=== PATIENT | female | born 1945 | race African-American/Black ===

== ENCOUNTER 2017-12-02 05:19 | Observation (INO) | payer MEDICARE ==
[2017-11-30 14:53] LABS: EOSINOPHILS # (AUTO) 0.1 (0.0-0.4); EOSINOPHILS % 3.4 % (0.0-6.0); HEMATOCRIT 35.8 % (34.2-44.1); HEMOGLOBIN 11.6 g/dL (12.0-16.0); LYMPHOCYTES # (AUTO) 1.4 (1.0-3.2); LYMPHOCYTES % 34.1 % (18.0-39.1); MEAN CORPUSCULAR HEMOGLOBIN 27.2 pg (28-32); MEAN CORPUSCULAR HGB CONC 32.4 g/dL (31-35); MEAN CORPUSCULAR VOLUME 83.8 fL (81-99); MONOCYTES # (AUTO) 0.6 (0.2-0.8); MONOCYTES % 13.7 % (4.4-11.3); NEUTROPHILS % 47.6 % (38.7-80.0); PLATELET COUNT 189 x10e3/uL (140-360); RED BLOOD COUNT 4.27 x10e6/uL (3.6-5.1); RED CELL DISTRIBUTION WIDTH 15.9 % (11.7-14.4)
--- NOTE | 2017-11-30 15:02 | Diagnostic Imaging Report ---
PROCEDURE: Frontal and lateral views of the chest. COMPARISON: Patients [facility], , CHEST 2 VIEWS, 03/12/2008, 8:59. INDICATIONS: PREOPERATIVE CHEST XRAY FOR CERVICAL SPINE SURGERY FINDINGS: Lines/tubes: None. Lungs: The lungs are well inflated and clear. There is no evidence of pneumonia or pulmonary edema. Pleura: There is no pleural effusion or pneumothorax. Heart and mediastinum: Stable enlargement of the cardiac silhouette, predominantly left atrial and ventricle. Pulmonary vasculature is normal. Atherosclerotic calcification of the aortic arch. Bones: No acute bony abnormality. IMPRESSION: 1. stable enlarged silhouette, with no acute cardiopulmonary abnormalities. Jourdan Chen M.D. Dictated by: Jourdan Chen M.D. on 11/30/2017 at 15:07 Electronically approved by: Jourdan Chen M.D. on 11/30/2017 at 15:07
[2017-11-30 15:05] LABS: INR 1.02; PROTHROMBIN TIME 12.6 seconds (11.9-14.5)
[2017-11-30 15:06] LABS: PARTIAL THROMBOPLASTIN TIME 30.7 seconds (23.8-35.5)
[2017-11-30 15:11] LABS: ANION GAP 14.2 mmol/L (8-16); CALCIUM 9.4 mg/dL (8.4-10.2); CREATININE, SERUM 1.09 mg/dL (0.57-1.11); POTASSIUM 4.2 mmol/L (3.5-5.1)
[~2017-12-02] VITALS: Ht 165.1 cm; Wt 114.8 kg
[~2017-12-02 05:19] MED LIST: AMLODIPINE BESYL5 MG PO; ATORVASTATIN CA20 MG PO; CITALOPRAM HBR20 MG PO; IBUPROFEN400 MG PO; OMEPRAZOLE40 MG PO; TERAZOSIN HCL1 MG PO; Z MINOXIDIL PO; Z.0.ATENOLOL50 MG PO; Z.0.LASIX40 MG PO; Z.0.LISINOPRIL20 MG PO; potassium chloride PO
[2017-12-02] MEDS ORDERED: THROMBIN FOR SOLN 5,000 UNIT VIAL ONE (06:29)
[2017-12-02] MEDS ORDERED: GELATIN SPONGE SZ 100 ONE (06:29)
[2017-12-02] MEDS ORDERED: BUPIVACAINE 0.5%/EPI 30 ML SDV INJ ONE (06:29)
[2017-12-02] MEDS ORDERED: BACITRACIN 50,000 UNIT VIAL ONE (06:29)
[2017-12-02] MEDS ORDERED: CEFAZOLIN SOD 1 GM VIAL ONE (06:37)
[2017-12-02] MEDS ORDERED: ACETAMINOPHEN 1000 MG/100 ML 100 ML IV ONE (07:17)
[2017-12-02] MEDS ORDERED: LIDOCAINE HCL (LTA) 4 ML SOLN ONE (07:18)
[2017-12-02] MEDS ORDERED: HYDROMORPHONE 1MG/1ML INJ ONE (08:57)
[2017-12-02] MEDS ORDERED: FENTANYL CITRATE/PF 100MCG/2 ML INJ ONE ×2 (08:58→17:52)
[2017-12-02] MEDS: LACTATED RINGER'S 1,000 ML IV SCH ×2 (09:10→17:58)
[2017-12-02] MEDS ORDERED: IBUPROFEN 400 MG TAB PO SCH (09:15)
[2017-12-02] MEDS ORDERED: MAGNESIUM/ALUMINUM/SIMETHICONE 30 ML UDC PO PRN (09:15)
[2017-12-02] MEDS ORDERED: OXYCODONE/ACETAMINOPHEN 5-325 1 EACH TABLET PO PRN (09:15)
[2017-12-02] MEDS ORDERED: ACETAMINOPHEN 325 MG TAB PO PRN (09:15)
[2017-12-02] MEDS ORDERED: ZOLPIDEM TARTRATE 5 MG TAB PO PRN (09:15)
[2017-12-02] MEDS ORDERED: MORPHINE SULFATE 5 MG/ML VIAL IM PRN (09:15)
[2017-12-02] MEDS ORDERED: CARISOPRODOL 350 MG TAB PO PRN (09:15)
[2017-12-02] MEDS ORDERED: PROMETHAZINE HCL (IM) 25 MG/ML VIAL IM PRN (09:15)
--- NOTE | 2017-12-02 10:14 | Operative Report ---
DATE OF PROCEDURE: December 02, 2017 PREOPERATIVE DIAGNOSIS: C6-7 disk herniation with radiculopathy, M50.123. POSTOPERATIVE DIAGNOSIS: C6-7 disk herniation with radiculopathy, M50.123. PROCEDURES 1. C6-C7 anterior cervical diskectomy and microsurgical osteophyte resection and allograft fusion, 21225. 2. Preparation of MTF cortical cancellous allograft, 51928. 3. C6-C7 anterior cervical plating with Synthes ZP endplate, 96683. ANESTHESIA: General. INDICATIONS: Patient is a 72-year-old woman who presents with a right C7 radiculopathy due to a right-sided C6-7 disk herniation in the setting of multilevel cervical spondylosis. She was taken to the operating room for anterior cervical decompression and fusion limited to the C6-C7 segment. PROCEDURE: After induction of general anesthesia, the patient was placed on the operating table in supine position. The right side of the neck was prepped and draped in sterile fashion. The fluoroscopic C-arm was positioned in cross-table lateral orientation. A transverse incision was created on the right side of the neck just above the clavicle. The platysma was divided in line with the incision. A subplatysmal dissection was carried out. An avascular plane of dissection was developed medial to the sternocleidomastoid muscle and followed medial to the carotid sheath to the anterior border of the cervical spine. The deep cervical fascia was opened. The esophagus was retracted to the left. The attachments of longus coli muscles to the anterior lateral aspects of vertebral bodies of C6 and C7 were divided. The anterior longitudinal ligament was resected. York posts were inserted into C6 and C7. A York distractor was used to distract the disk space. The anterior annulus of the disk was incised with a #11 blade, and the contents of the disks were thoroughly evacuated with angled curets and pituitary rongeurs. The posterior osteophytes were meticulously drilled with a 2-mm cutting bur until they were completely removed. The posterior annulus of the disk, a large amount of herniated disk material from the right C7 neural foramen, and the posterior longitudinal ligament were resected layer by layer to fully expose and decompress the nerve roots and the dura. The medial aspect of the uncinate process was resected on the right side to further ensure the decompression of the right C7 nerve root. After satisfactory decompression had been achieved, the endplates were prepared for fusion. The disk space was sized and fount to be 8 mm in height. A piece of MTF cortical cancellous allograft measuring 8 mm in thickness was selected and prepared in saline and loaded onto a Synthes ZP endplate. The construct was inserted into the C6-7 disk space under distraction and fluoroscopic guidance and tamped in place until the anterior margin of the plate was flush with anterior margins of the vertebral bodies. The plate was then screwed to the endplates of C6 and C7 with 2 pairs of 14-mm screws. All screws were locked. An excellent construct was obtained. The wound was copiously irrigated with bacitracin solution. Meticulous hemostasis was secured. Retractor was removed. The platysma was closed with 3-0 Vicryl sutures. The skin was closed with 4-0 Monocryl sutures in subcuticular fashion. Steri-Strips and dressing were applied. The patient was awakened, extubated, and taken to the postanesthesia care unit in stable condition. No intraoperative complications were encountered. Estimated blood loss was 10 mL. Job#: [id number]
[2017-12-02] MEDS ORDERED: IBUPROFEN 600 MG TAB PO PRN (11:30)
[2017-12-02 11:50] VITALS: BP 173/82
[2017-12-02 12:45] VITALS: BP 173/82
[2017-12-02] MEDS: ONDANSETRON HCL INJ 2 MG/ML VIAL IV PRN ×2 (13:00→20:30)
[2017-12-02] MEDS: HYDROMORPHONE 2MG/ML 2 MG/ML ML IV PRN ×2 (13:00→20:30)
[2017-12-02] MEDS ORDERED: CEFAZOLIN SOD 1 GM/D5W 50ML 50 ML IV SCH (14:00)
[2017-12-02] MEDS: CEFAZOLIN SOD 1 GM VIAL IV SCH ×2 (14:27→22:23)
[2017-12-02 15:08] VITALS: BP 173/82
[2017-12-02 15:16] VITALS: BP 147/64
[2017-12-02] MEDS ORDERED: GLYCOPYRROLATE INJ 1MG/ 5 ML SYR ONE (17:44)
[2017-12-02] MEDS ORDERED: PROPOFOL IV EMULSION 10 MG/ML 20 ML VIAL ONE (17:44)
[2017-12-02] MEDS ORDERED: ONDANSETRON HCL INJ 2 MG/ML VIAL ONE (17:44)
[2017-12-02] MEDS ORDERED: ROCURONIUM BROMIDE 10 MG/ML 5ML VIAL ONE (17:44)
[2017-12-02] MEDS ORDERED: SEVOFLURANE INHAL SOLN 250 ML PEN BTL ONE (17:44)
[2017-12-02] MEDS ORDERED: EPHEDRINE SULFATE INJ 50 MG/10 ML SYR ONE (17:44)
[2017-12-02] MEDS ORDERED: NEOSTIGMINE 5 MG/5ML SYR ONE (17:44)
[2017-12-02] MEDS ORDERED: LIDOCAINE HCL 2% LOCAL INJ 5 ML SDV VIAL INJ ONE (17:44)
[2017-12-02] MEDS ORDERED: DEXAMETHASONE SOD PHOS INJ 4 MG/ML VIAL ONE (17:44)
[2017-12-02] MEDS ORDERED: MIDAZOLAM HCL 2 MG/2 ML VIAL ONE (17:52)
[2017-12-02] MEDS: AMLODIPINE BESYLATE 5 MG TAB PO SCH (17:56)
[2017-12-02] MEDS: LISINOPRIL 20 MG TAB PO SCH (17:57)
[2017-12-02 19:30] VITALS: BP 159/70
[2017-12-02] MEDS ORDERED: ATORVASTATIN 20 MG TAB PO SCH (21:00)
[2017-12-02] MEDS ORDERED: ATORVASTATIN 40 MG TAB PO SCH (21:00)
[2017-12-02] MEDS ORDERED: MORPHINE SULFATE INJ 4 MG/ML INJ IM PRN (21:15)
[2017-12-02 23:12] VITALS: BP 159/70
[2017-12-03 01:00] VITALS: BP 144/64
[2017-12-03] MEDS: LACTATED RINGER'S 1,000 ML IV SCH (01:59)
[2017-12-03 05:30] VITALS: BP 152/70
[2017-12-03] MEDS: CEFAZOLIN SOD 1 GM VIAL IV SCH (05:48)
[2017-12-03 08:19] VITALS: BP 140/70
[2017-12-03] MEDS: AMLODIPINE BESYLATE 5 MG TAB PO SCH (08:20)
[2017-12-03] MEDS: LISINOPRIL 20 MG TAB PO SCH (08:20)
[2017-12-03] MEDS ORDERED: TERAZOSIN HCL 1 MG CAP PO SCH (09:00)
[2017-12-03] MEDS ORDERED: PANTOPRAZOLE SOD 40 MG TABEC PO SCH (09:00)
[2017-12-03] MEDS ORDERED: POTASSIUM CHLORIDE 20 MEQ TAB CR PO SCH (09:00)
[2017-12-03] MEDS ORDERED: FUROSEMIDE 20 MG TAB PO SCH (09:00)
[2017-12-03] MEDS ORDERED: CITALOPRAM HYDROBROMIDE 20 MG TAB PO SCH (09:00)
[2017-12-03] MEDS ORDERED: POTASSIUM CHLORIDE PO SCH (09:00)
[2017-12-03] MEDS ORDERED: FUROSEMIDE 40 MG TAB PO SCH (09:00)
--- NOTE | 2017-12-03 09:26 | Diagnostic Imaging Report ---
PROCEDURE: X-RAY CERVICAL SPINE, TWO VIEWS COMPARISON: None. INDICATIONS: S/P SURGERY FINDINGS: C1 through C6 was initially visualized on lateral view, and swimmer view obtained to visualize C7. Mild straightening of the normal cervical lordosis. Vertebral body heights are preserved. There has been anterior discectomy and fusion of C6-C7 with intervertebral device, anterior plate, and bilateral screws. The hardware appears intact. Pre-vertebral soft tissue edema is noted, measuring up to 2.1 cm at C6, consistent with post operative changes. Multilevel degenerative disc and facet degenerative changes, most pronounced at C3-C4 and C5-C6. CONCLUSION: Post surgical changes status post anterior discectomy and fusion at C6-C7 with intact hardware. Multilevel cervical degenerative disc and facet degenerative changes. Dictated by: LITTLE SWAIN M.D. on 12/03/2017 at 8:48 Electronically approved by: LITTLE SWAIN M.D. on 12/03/2017 at 8:48
== END 2017-12-03 11:04 | disposition home or self-care (01) ==
LOC: OR 05:19 → PACU V 09:11 → IMCU 10:33
PROVIDERS: ADMIT Neurological Surgery; ATTEND Neurological Surgery
DX: M50.123 Cervical disc disorder at C6-C7 level with radiculopathy (principal); I10 Essential (primary) hypertension; E78.5 Hyperlipidemia, unspecified; E66.9 Obesity, unspecified; F41.9 Anxiety disorder, unspecified; K21.9 Gastro-esophageal reflux disease without esophagitis
CPT/HCPCS: 20931; 22551; 22845; 36415; 71046; 72040; 77003; 80048; 85025; 85610; 85730; 86850; 86900; 88304; 93005; C1713 ×2; C9359; G0378 ×2; J0690 ×2; J1100; J1170; J2001; J2250; J2405; J3490; J7120; S0164; J2270